=== PATIENT | female | born 1950 | race Caucasian/White ===

== ENCOUNTER 2016-12-15 08:47 | Day surgery (SDC) ==
[2016-12-15] MEDS ORDERED: DIPRIVAN 20 ML VIAL IVP ONE (11:30)
[2016-12-15] MEDS ORDERED: VERSED ONE (11:30)
[2016-12-15 12:55] VITALS: BP 136/79; TEMP 97
--- NOTE | 2016-12-16 15:42 | OP ---
INDICATIONS FOR PROCEDURE: 66 year old female presents for colonoscopy. She as a remote history of abnormalis polyp with a negative colonoscopy five years ago and a family history of colon cancer involving the second degree relative. She presents for surveillance exam. MEDICATIONS: SEE ANESTHESIA NOTES. PROCEDURE: COLONOSCOPY. REPORT: The risks, benefits, alternatives and limitations were discussed in detail with the patient. Informed consent was obtained. After adequate sedation was achieved, a digital rectal exam revealed good tone, no masses. The colonoscope was introduced into the rectum and advanced under direct visual guidance to the cecum. The cecum was identified by the appendiceal orifice and IC valve. I then slowly withdrew the scope in a circumferential manner and examined the mucosa quite carefully. I looked on the proximal and distal sides of the folds and flexures as best as possible. I was able to retroflex the scope in the right colon as well as the left colon. The clonic mucosa was unremarkable in it's entire length other then diverticulosis there was a few diverticuli in the right colon and moderate diverticulosis scattered throughout the left colon. No other abnormalities noted including on retroflex view of the anal canal. The prep was good and the withdraw time was 10 minutes and 8 seconds. The patient tolerated the procedure well with stable vital signs and pulse oximetry throughout. IMPRESSION: 1. Seth diverticulosis RECOMMENDATIONS: 1. High fiber diet 2. Office visit as needed 3. Consider colonoscopy examination again in 5 years or sooner if there is signs or symptoms to indicate otherwise CC: Dr. Sloan CLARK
== END 2016-12-15 13:00 | disposition home or self-care (01) ==
LOC: SURG 08:47
PROVIDERS: ATTEND Internal Medicine Gastroenterology
DX: Z09 Encounter for follow-up examination after completed treatment for conditions other than malignant neoplasm (principal); Z86.010 Personal history of colon polyps; K57.30 Diverticulosis of large intestine without perforation or abscess without bleeding; Z80.0 Family history of malignant neoplasm of digestive organs